=== PATIENT | male | born 1935 | race Caucasian/White ===

== ENCOUNTER 2020-06-28 11:00 | Inpatient (IN) | payer MEDICARE, BC ==
[2020-06-28 11:32] LABS: #Basophils 0.1 10x3/uL (0.0-0.2); #Eosinphils 0.4 10x3/uL (0.0-0.5); #Neutrophils 5.7 10x3/uL (1.5-8.4); %Basophils 0.8 % (0.0-2.0); %Lymphocytes 4.1 % (18.0-47.0); %Monocytes 13.2 % (0.0-10.0); %Neutrophils 76.5 % (40.0-75.0); Hemoglobin 8.1 g/dL (13.5-17.5); Mean Corpuscular HGB CONC 27.7 g/dL (32.0-36.0); Mean Corpuscular Hemoglobin 25.2 pg (27.0-33.0); Mean Corpuscular Volume 90.7 fl (81.2-95.1); Mean Platelet Volume 9.3 fl (7.4-10.4); Platelet Count 254 10x3/uL (150-450); RBC Distribution Width 16.7 % (11.5-14.5); Red Blood Cell (RBC) Count 3.22 10x6/uL (4.32-5.72); White Blood Cell (WBC) Count 7.4 10x3/uL (3.5-10.5)
[2020-06-28 11:38] LABS: ALT (SGPT) 12 U/L (8-55); AST (SGOT) 8 U/L (5-34); Albumin 3.9 g/dL (3.4-4.8); Alkaline Phosphatase 134 U/L (40-110); Anion Gap 14 mmol/L (10-20); BUN (Urea Nitrogen) 16 mg/dL (8.4-25.7); Bilirubin, Total 0.8 mg/dL (0.2-1.2); Calc. Creatinine Clearance 0 mL/min (70-130); Calcium 8.6 mg/dL (7.8-10.44); Carbon Dioxide 28 mmol/L (23-31); Chloride 99 mmol/L (98-107); Globulin 2.6 g/dL (2.4-3.5); Glucose 97 mg/dL (83-110); Potassium 4.5 mmol/L (3.5-5.1); Protein, Total 6.5 g/dL (5.8-8.1); Sodium 136 mmol/L (136-145)
[2020-06-28 11:48] LABS: INR-International Normal Ratio 1.1; PTT 25.8 sec (22.0-33.0); Prothrombin Time 11.8 sec (9.5-12.1)
[2020-06-28 14:36] LABS: Lactic Acid 1.1 mmol/L (0.5-2.2)
[2020-06-28 14:40] VITALS: BMI 32.5
[2020-06-28] MEDS ORDERED: Ondansetron PF 4 MG/2 ML Vial IVP PRN (17:02)
[2020-06-28] MEDS ORDERED: Acetaminophen 325 MG TAB PO PRN (17:02)
[2020-06-28] MEDS ORDERED: Bisacodyl 5 MG TAB PO PRN (17:06)
[2020-06-28] MEDS ORDERED: Furosemide 40 MG/4 ML VIAL SLOW IVP SCH (17:45)
[2020-06-28] MEDS: Budesonide 0.5 MG/2 ML NEB NEB SCH (20:13)
[2020-06-28] MEDS: Arformoterol 15 MCG/2 ML NEB NEB SCH (20:13)
[2020-06-28] MEDS: Atorvastatin Calcium 40 MG TAB PO SCH (21:59)
[2020-06-28] MEDS: Potassium Chloride 20 MEQ TAB PO SCH (21:59)
[2020-06-28] MEDS: Gabapentin 300 MG CAP PO SCH (22:00)
[2020-06-28] MEDS: Pantoprazole 40 MG VIAL IVP SCH (22:01)
[2020-06-29 03:55] LABS: SARS-CoV-2 PCR by NAA Not Detected (NotDetected)
[2020-06-29 05:02] LABS: #Basophils 0.1 10x3/uL (0.0-0.2); #Eosinphils 0.4 10x3/uL (0.0-0.5); #Monocytes 0.8 10x3/uL (0.0-1.1); #Neutrophils 4.2 10x3/uL (1.5-8.4); %Eosinophils 7.5 % (0.0-6.0); %Lymphocytes 5.5 % (18.0-47.0); %Monocytes 13.6 % (0.0-10.0); %Neutrophils 72.1 % (40.0-75.0); Hemoglobin 7.6 g/dL (13.5-17.5); Mean Corpuscular HGB CONC 27.8 g/dL (32.0-36.0); Mean Corpuscular Volume 89.8 fl (81.2-95.1); Mean Platelet Volume 9.4 fl (7.4-10.4); Platelet Count 235 10x3/uL (150-450); RBC Distribution Width 16.6 % (11.5-14.5); Red Blood Cell (RBC) Count 3.04 10x6/uL (4.32-5.72); White Blood Cell (WBC) Count 5.8 10x3/uL (3.5-10.5)
[2020-06-29 05:19] LABS: Anion Gap 13 mmol/L (10-20); BUN (Urea Nitrogen) 14 mg/dL (8.4-25.7); Calc. Creatinine Clearance 90 mL/min (70-130); Calcium 8.6 mg/dL (7.8-10.44); Carbon Dioxide 30 mmol/L (23-31); Chloride 99 mmol/L (98-107); Glucose 97 mg/dL (83-110); Potassium 4.5 mmol/L (3.5-5.1); Sodium 137 mmol/L (136-145)
[2020-06-29] MEDS: Arformoterol 15 MCG/2 ML NEB NEB SCH ×2 (07:26→19:15)
[2020-06-29] MEDS: Budesonide 0.5 MG/2 ML NEB NEB SCH ×2 (07:26→19:15)
[2020-06-29] MEDS: Furosemide 40 MG/4 ML VIAL SLOW IVP SCH ×2 (09:37→17:52)
[2020-06-29] MEDS: FLUoxetine HCl 10 MG CAP PO SCH (09:43)
[2020-06-29] MEDS: Tamsulosin HCl 0.4 MG CAP PO SCH (09:43)
[2020-06-29] MEDS: Finasteride 5 MG TAB PO SCH (09:43)
[2020-06-29] MEDS: Gabapentin 300 MG CAP PO SCH ×2 (09:44→21:28)
[2020-06-29] MEDS: Spironolactone 25 MG TAB PO SCH (09:44)
[2020-06-29] MEDS: Potassium Chloride 20 MEQ TAB PO SCH ×2 (09:45→21:29)
[2020-06-29] MEDS: Ferrous Sulfate 325 MG TAB PO SCH ×2 (09:45→17:52)
[2020-06-29] MEDS: Pantoprazole 40 MG VIAL IVP SCH ×2 (09:46→22:25)
[2020-06-29] MEDS ORDERED: Pantoprazole 40 MG VIAL ONE (20:52)
[2020-06-29] MEDS: Atorvastatin Calcium 40 MG TAB PO SCH (21:29)
[2020-06-30 05:18] LABS: Hemoglobin 7.4 g/dL (13.5-17.5)
[2020-06-30 05:37] LABS: Anion Gap 13 mmol/L (10-20); BUN (Urea Nitrogen) 20 mg/dL (8.4-25.7); Calc. Creatinine Clearance 100 mL/min (70-130); Calcium 8.9 mg/dL (7.8-10.44); Carbon Dioxide 31 mmol/L (23-31); Chloride 95 mmol/L (98-107); Glucose 101 mg/dL (83-110); Potassium 4.5 mmol/L (3.5-5.1); Sodium 134 mmol/L (136-145)
[2020-06-30] MEDS: Budesonide 0.5 MG/2 ML NEB NEB SCH ×2 (07:28→19:12)
[2020-06-30] MEDS: Arformoterol 15 MCG/2 ML NEB NEB SCH ×2 (07:35→19:12)
[2020-06-30] MEDS: Spironolactone 25 MG TAB PO SCH (08:21)
[2020-06-30] MEDS: Ferrous Sulfate 325 MG TAB PO SCH (08:21)
[2020-06-30] MEDS: Potassium Chloride 20 MEQ TAB PO SCH ×2 (08:21→21:01)
[2020-06-30] MEDS: Tamsulosin HCl 0.4 MG CAP PO SCH (08:21)
[2020-06-30] MEDS: Finasteride 5 MG TAB PO SCH (08:22)
[2020-06-30] MEDS: Gabapentin 300 MG CAP PO SCH ×2 (08:22→21:01)
[2020-06-30] MEDS: FLUoxetine HCl 10 MG CAP PO SCH (08:23)
[2020-06-30] MEDS: Furosemide 40 MG/4 ML VIAL SLOW IVP SCH ×2 (08:23→17:15)
[2020-06-30] MEDS: Pantoprazole 40 MG VIAL IVP SCH ×2 (08:35→21:00)
[2020-06-30] MEDS: Guaifenesin DM 100-10/5 ML UDCUP PO PRN (13:52)
[2020-06-30] MEDS ORDERED: Furosemide 40 MG/4 ML VIAL SLOW IVP SCH (18:45)
[2020-06-30] MEDS: Atorvastatin Calcium 40 MG TAB PO SCH (21:01)
[2020-07-01] MEDS ORDERED: Oxymetazoline HCl 0.05% ( 15 ML ) NASAL PRN (04:58)
[2020-07-01 06:30] LABS: #Basophils 0.1 10x3/uL (0.0-0.2); #Eosinphils 0.3 10x3/uL (0.0-0.5); #Monocytes 0.7 10x3/uL (0.0-1.1); #Neutrophils 4.7 10x3/uL (1.5-8.4); %Basophils 0.8 % (0.0-2.0); %Lymphocytes 4.3 % (18.0-47.0); %Monocytes 11.7 % (0.0-10.0); %Neutrophils 77.7 % (40.0-75.0); Hemoglobin 7.5 g/dL (13.5-17.5); Mean Corpuscular HGB CONC 28.2 g/dL (32.0-36.0); Mean Corpuscular Hemoglobin 24.8 pg (27.0-33.0); Mean Corpuscular Volume 87.8 fl (81.2-95.1); Mean Platelet Volume 9.4 fl (7.4-10.4); Platelet Count 220 10x3/uL (150-450); RBC Distribution Width 16.9 % (11.5-14.5); Red Blood Cell (RBC) Count 3.03 10x6/uL (4.32-5.72)
[2020-07-01 06:34] LABS: Anion Gap 13 mmol/L (10-20); BUN (Urea Nitrogen) 18 mg/dL (8.4-25.7); Calc. Creatinine Clearance 97 mL/min (70-130); Calcium 8.7 mg/dL (7.8-10.44); Carbon Dioxide 32 mmol/L (23-31); Chloride 92 mmol/L (98-107); Glucose 99 mg/dL (83-110); Magnesium 2.1 mg/dL (1.6-2.6); Potassium 4.3 mmol/L (3.5-5.1); Sodium 133 mmol/L (136-145)
[2020-07-01] MEDS: Arformoterol 15 MCG/2 ML NEB NEB SCH ×2 (07:35→19:40)
[2020-07-01] MEDS: Budesonide 0.5 MG/2 ML NEB NEB SCH (07:40)
[2020-07-01] MEDS: Potassium Chloride 20 MEQ TAB PO SCH ×2 (10:03→20:12)
[2020-07-01] MEDS: Spironolactone 25 MG TAB PO SCH (10:04)
[2020-07-01] MEDS: Furosemide 40 MG/4 ML VIAL SLOW IVP SCH ×2 (10:04→15:57)
[2020-07-01] MEDS: Gabapentin 300 MG CAP PO SCH ×2 (10:04→20:11)
[2020-07-01] MEDS: Finasteride 5 MG TAB PO SCH (10:04)
[2020-07-01] MEDS: Tamsulosin HCl 0.4 MG CAP PO SCH (10:04)
[2020-07-01] MEDS: FLUoxetine HCl 10 MG CAP PO SCH (10:04)
[2020-07-01] MEDS: Pantoprazole 40 MG VIAL IVP SCH ×2 (10:05→20:12)
[2020-07-01] MEDS ORDERED: methylPREDNISolone Sod Succ/PF 125 MG/2 ML VIAL IVP SCH (15:30)
[2020-07-01] MEDS: methylPREDNISolone Sod Succ/PF 125 MG/2 ML VIAL IVP SCH (20:11)
[2020-07-01] MEDS: Atorvastatin Calcium 40 MG TAB PO SCH (20:14)
[2020-07-02] MEDS: methylPREDNISolone Sod Succ/PF 125 MG/2 ML VIAL IVP SCH ×4 (02:32→21:14)
[2020-07-02] MEDS: Arformoterol 15 MCG/2 ML NEB NEB SCH ×2 (07:32→19:55)
[2020-07-02] MEDS: Furosemide 40 MG/4 ML VIAL SLOW IVP SCH (09:18)
[2020-07-02] MEDS: Gabapentin 300 MG CAP PO SCH ×2 (09:18→21:14)
[2020-07-02] MEDS: FLUoxetine HCl 10 MG CAP PO SCH (09:18)
[2020-07-02] MEDS: Spironolactone 25 MG TAB PO SCH (09:19)
[2020-07-02] MEDS: Tamsulosin HCl 0.4 MG CAP PO SCH (09:19)
[2020-07-02] MEDS: Potassium Chloride 20 MEQ TAB PO SCH ×2 (09:19→21:14)
[2020-07-02] MEDS: Finasteride 5 MG TAB PO SCH (09:19)
[2020-07-02] MEDS: Furosemide 100 MG/10 ML VIAL SLOW IVP SCH (15:04)
[2020-07-02] MEDS: Atorvastatin Calcium 40 MG TAB PO SCH (21:14)
[2020-07-03] MEDS: methylPREDNISolone Sod Succ/PF 125 MG/2 ML VIAL IVP SCH ×4 (02:49→20:40)
[2020-07-03] MEDS: Guaifenesin DM 100-10/5 ML UDCUP PO PRN (05:20)
[2020-07-03 05:59] LABS: Anion Gap 13 mmol/L (10-20); BUN (Urea Nitrogen) 26 mg/dL (8.4-25.7); Calc. Creatinine Clearance 88 mL/min (70-130); Carbon Dioxide 33 mmol/L (23-31); Chloride 92 mmol/L (98-107); Glucose 152 mg/dL (83-110); Potassium 5.1 mmol/L (3.5-5.1); Sodium 133 mmol/L (136-145)
[2020-07-03] MEDS: Arformoterol 15 MCG/2 ML NEB NEB SCH ×2 (07:32→19:04)
[2020-07-03] MEDS: Tamsulosin HCl 0.4 MG CAP PO SCH (09:45)
[2020-07-03] MEDS: Furosemide 100 MG/10 ML VIAL SLOW IVP SCH ×2 (09:45→18:36)
[2020-07-03] MEDS: Finasteride 5 MG TAB PO SCH (09:45)
[2020-07-03] MEDS: FLUoxetine HCl 10 MG CAP PO SCH (09:45)
[2020-07-03] MEDS: Gabapentin 300 MG CAP PO SCH ×2 (09:45→20:40)
[2020-07-03] MEDS: Potassium Chloride 20 MEQ TAB PO SCH (09:45)
[2020-07-03] MEDS: Atorvastatin Calcium 40 MG TAB PO SCH (20:41)
[2020-07-04] MEDS: methylPREDNISolone Sod Succ/PF 125 MG/2 ML VIAL IVP SCH ×4 (03:33→23:27)
[2020-07-04 06:28] LABS: Anion Gap 13 mmol/L (10-20); BUN (Urea Nitrogen) 31 mg/dL (8.4-25.7); Calc. Creatinine Clearance 88 mL/min (70-130); Carbon Dioxide 35 mmol/L (23-31); Chloride 91 mmol/L (98-107); Glucose 172 mg/dL (83-110); Potassium 4.6 mmol/L (3.5-5.1); Sodium 134 mmol/L (136-145)
[2020-07-04 07:19] LABS: #Monocytes 0.1 10x3/uL (0.0-1.1); #Neutrophils 4.6 10x3/uL (1.5-8.4); %Lymphocytes 1.9 % (18.0-47.0); %Monocytes 1.5 % (0.0-10.0); %Neutrophils 95.6 % (40.0-75.0); Hemoglobin 7.7 g/dL (13.5-17.5); Mean Corpuscular HGB CONC 27.8 g/dL (32.0-36.0); Mean Corpuscular Hemoglobin 24.4 pg (27.0-33.0); Mean Corpuscular Volume 87.7 fl (81.2-95.1); Platelet Count 250 10x3/uL (150-450); RBC Distribution Width 16.4 % (11.5-14.5); Red Blood Cell (RBC) Count 3.16 10x6/uL (4.32-5.72); White Blood Cell (WBC) Count 4.8 10x3/uL (3.5-10.5)
[2020-07-04 07:20] LABS: Anisocytosis SLIGHT = 6-15 cells (100X) (0-5/hpf); Hypochromia MARKED = >30 cells (100X) (0-5/hpf); Microcytosis SLIGHT = 6-15 cells (100X) (0-5/hpf); Ovalocytes SLIGHT = 2-5 cells (100X) (0-1/hpf); Poikilocytosis SLIGHT = 6-15 cells (100X) (0-5/hpf)
[2020-07-04 07:21] LABS: Macrocytosis SLIGHT = 6-15 cells (100X) (0-5/hpf)
[2020-07-04 07:22] LABS: Platelet Morphology Comment Appears Adequate; Polychromasia SLIGHT = 2-3 cells (100X) (0-2/hpf)
[2020-07-04] MEDS: Arformoterol 15 MCG/2 ML NEB NEB SCH ×2 (07:41→18:59)
[2020-07-04] MEDS: Gabapentin 300 MG CAP PO SCH ×2 (09:40→21:33)
[2020-07-04] MEDS: Finasteride 5 MG TAB PO SCH (09:40)
[2020-07-04] MEDS: Tamsulosin HCl 0.4 MG CAP PO SCH (09:41)
[2020-07-04] MEDS: FLUoxetine HCl 10 MG CAP PO SCH (09:41)
[2020-07-04] MEDS: Potassium Chloride 20 MEQ TAB PO SCH (09:41)
[2020-07-04] MEDS: Furosemide 100 MG/10 ML VIAL SLOW IVP SCH ×2 (09:42→16:35)
[2020-07-04] MEDS: Atorvastatin Calcium 40 MG TAB PO SCH (21:34)
[2020-07-05] MEDS: methylPREDNISolone Sod Succ/PF 125 MG/2 ML VIAL IVP SCH ×3 (03:13→21:20)
[2020-07-05] MEDS: Guaifenesin DM 100-10/5 ML UDCUP PO PRN (06:18)
[2020-07-05 06:38] LABS: Anion Gap 12 mmol/L (10-20); BUN (Urea Nitrogen) 31 mg/dL (8.4-25.7); Calc. Creatinine Clearance 88 mL/min (70-130); Calcium 8.8 mg/dL (7.8-10.44); Carbon Dioxide 35 mmol/L (23-31); Chloride 92 mmol/L (98-107); Glucose 160 mg/dL (83-110); Potassium 4.4 mmol/L (3.5-5.1); Sodium 135 mmol/L (136-145)
[2020-07-05] MEDS: Arformoterol 15 MCG/2 ML NEB NEB SCH (07:19)
[2020-07-05] MEDS: Gabapentin 300 MG CAP PO SCH (11:50)
[2020-07-05] MEDS: FLUoxetine HCl 10 MG CAP PO SCH (11:50)
[2020-07-05] MEDS: Finasteride 5 MG TAB PO SCH (11:50)
[2020-07-05] MEDS: Furosemide 100 MG/10 ML VIAL SLOW IVP SCH (11:50)
[2020-07-05] MEDS: Potassium Chloride 20 MEQ TAB PO SCH (11:50)
[2020-07-05] MEDS: Tamsulosin HCl 0.4 MG CAP PO SCH (11:50)
[2020-07-05 21:37] VITALS: BP 128/68; TEMP 98.3
== END 2020-07-05 15:30 | DRG 377 ==
LOC: CSHERS 11:00 → INTOOBSV 13:27 → CSHTELE 13:27 → OBSVTOIN 17:02
PROVIDERS: ADMIT Hospitalist; ATTEND Hospitalist
DX: K92.1 Melena (principal); I50.33 Acute on chronic diastolic (congestive) heart failure; J96.21 Acute and chronic respiratory failure with hypoxia; J44.1 Chronic obstructive pulmonary disease with (acute) exacerbation; D50.9 Iron deficiency anemia, unspecified; I48.0 Paroxysmal atrial fibrillation; I35.0 Nonrheumatic aortic (valve) stenosis; I11.0 Hypertensive heart disease with heart failure; Z20.822 Contact with and (suspected) exposure to COVID-19; H91.90 Unspecified hearing loss, unspecified ear; Z95.0 Presence of cardiac pacemaker; Z88.7 Allergy status to serum and vaccine; Z79.82 Long term (current) use of aspirin; Z79.899 Other long term (current) drug therapy; Z87.891 Personal history of nicotine dependence; L89.322 Pressure ulcer of left buttock, stage 2
CPT/HCPCS: 36415; 36416; 71045; 80048; 80053; 82274; 83605; 83735; 83880; 85014; 85018; 85025; 85610; 85730; 86850; 86900; 86901; 87040; 87635; 94640; 94760; 99285; C9113; G0378; J1940; J2930; J7620; J7626; U0003; U0005

== ENCOUNTER 2020-07-23 16:37 | Inpatient (IN) | payer MEDICARE, BC ==
[2020-07-23 17:45] LABS: #Monocytes 0.3 10x3/uL (0.0-1.1); #Neutrophils 6.1 10x3/uL (1.5-8.4); %Basophils 0.3 % (0.0-2.0); %Eosinophils 0.3 % (0.0-6.0); %Lymphocytes 3.9 % (18.0-47.0); %Monocytes 4.3 % (0.0-10.0); %Neutrophils 90.8 % (40.0-75.0); Hemoglobin 7.4 g/dL (13.5-17.5); Mean Corpuscular HGB CONC 28.1 g/dL (32.0-36.0); Mean Corpuscular Hemoglobin 24.3 pg (27.0-33.0); Mean Corpuscular Volume 86.2 fl (81.2-95.1); Mean Platelet Volume 9.8 fl (7.4-10.4); Platelet Count 179 10x3/uL (150-450); RBC Distribution Width 19.5 % (11.5-14.5); Red Blood Cell (RBC) Count 3.05 10x6/uL (4.32-5.72); White Blood Cell (WBC) Count 6.7 10x3/uL (3.5-10.5)
[2020-07-23 17:50] LABS: ALT (SGPT) 18 U/L (8-55); AST (SGOT) 7 U/L (5-34); Albumin 3.7 g/dL (3.4-4.8); Alkaline Phosphatase 110 U/L (40-110); Anion Gap 18 mmol/L (10-20); BUN (Urea Nitrogen) 16 mg/dL (8.4-25.7); Bilirubin, Total 0.6 mg/dL (0.2-1.2); Calc. Creatinine Clearance 0 mL/min (70-130); Calcium 8.5 mg/dL (7.8-10.44); Carbon Dioxide 23 mmol/L (23-31); Chloride 99 mmol/L (98-107); Globulin 2.1 g/dL (2.4-3.5); Glucose 91 mg/dL (83-110); Potassium 4.5 mmol/L (3.5-5.1); Protein, Total 5.8 g/dL (5.8-8.1); Sodium 135 mmol/L (136-145)
[2020-07-23 18:17] LABS: Anisocytosis SLIGHT = 6-15 cells (100X) (0-5/hpf)
[2020-07-23 18:19] LABS: Hypochromia SLIGHT = 6-15 cells (100X) (0-5/hpf); Polychromasia SLIGHT = 2-3 cells (100X) (0-2/hpf)
[2020-07-23 18:20] LABS: Microcytosis SLIGHT = 6-15 cells (100X) (0-5/hpf)
[2020-07-23 18:22] LABS: Large Platelets SLIGHT; Target Cells SLIGHT = 2-5 cells (100X) (0-1/hpf)
[2020-07-23 18:23] LABS: Platelet Morphology Comment Appears Adequate
[2020-07-23] MEDS ORDERED: Ondansetron PF 4 MG/2 ML Vial IVP PRN (18:43)
[2020-07-23] MEDS ORDERED: Senokot S 8.6-50 MG TAB PO PRN (18:43)
[2020-07-23] MEDS ORDERED: Acetaminophen 325 MG TAB PO PRN (18:43)
[2020-07-23] MEDS ORDERED: Furosemide 40 MG/4 ML VIAL ONE (18:46)
[2020-07-23 19:06] LABS: Bilirubin Neg (Negative); Blood, Urine Negative (Negative); Clarity Clear (Clear); Glucose, Urine (Dipstick) Normal (Negative); Ketone, Urine Negative (Negative); Leukocyte Negative (Negative); Nitrite Negative (Negative); Protein, Urine (Dipstick) 15 mg/dl (Neg-Trace); Specific Gravity, Urine 1.015 (1.002-1.036); Urobilinogen Normal mg/dL (Less than 2)
[2020-07-23 22:28] LABS: Troponin I 0.034 ng/mL (< 0.028)
[2020-07-23 22:55] VITALS: BMI 33.0
[2020-07-23 23:23] LABS: Troponin I 0.035 ng/mL (< 0.028)
[2020-07-23] MEDS: Atorvastatin Calcium 40 MG TAB PO SCH (23:35)
[2020-07-23] MEDS: Benzonatate 100 MG CAP PO SCH (23:36)
[2020-07-23] MEDS: Gabapentin 300 MG CAP PO SCH (23:36)
[2020-07-24 05:31] LABS: #Eosinphils 0.1 10x3/uL (0.0-0.5); #Monocytes 0.4 10x3/uL (0.0-1.1); #Neutrophils 4.1 10x3/uL (1.5-8.4); %Basophils 0.6 % (0.0-2.0); %Eosinophils 2.6 % (0.0-6.0); %Lymphocytes 6.4 % (18.0-47.0); %Monocytes 8.4 % (0.0-10.0); %Neutrophils 81.8 % (40.0-75.0); Hemoglobin 7.4 g/dL (13.5-17.5); Mean Corpuscular HGB CONC 27.9 g/dL (32.0-36.0); Mean Platelet Volume 10.1 fl (7.4-10.4); Platelet Count 192 10x3/uL (150-450); RBC Distribution Width 19.7 % (11.5-14.5); Red Blood Cell (RBC) Count 3.08 10x6/uL (4.32-5.72)
[2020-07-24 05:45] LABS: ALT (SGPT) 13 U/L (8-55); AST (SGOT) 7 U/L (5-34); Albumin 3.6 g/dL (3.4-4.8); Alkaline Phosphatase 106 U/L (40-110); Anion Gap 13 mmol/L (10-20); BUN (Urea Nitrogen) 14 mg/dL (8.4-25.7); Bilirubin, Total 0.6 mg/dL (0.2-1.2); Calc. Creatinine Clearance 99 mL/min (70-130); Calcium 8.5 mg/dL (7.8-10.44); Carbon Dioxide 28 mmol/L (23-31); Chloride 99 mmol/L (98-107); Globulin 2.4 g/dL (2.4-3.5); Glucose 112 mg/dL (83-110); Potassium 3.8 mmol/L (3.5-5.1); Sodium 136 mmol/L (136-145)
[2020-07-24] MEDS: Furosemide 40 MG/4 ML VIAL SLOW IVP SCH ×2 (06:37→14:40)
[2020-07-24] MEDS: Budesonide 0.5 MG/2 ML NEB NEB SCH ×2 (07:45→18:45)
[2020-07-24] MEDS ORDERED: Enoxaparin Sodium 40 MG/0.4 ML SYRINGE SC SCH (09:00)
[2020-07-24] MEDS: Gabapentin 300 MG CAP PO SCH ×2 (09:10→21:35)
[2020-07-24] MEDS: predniSONE 10 MG TAB PO SCH (09:11)
[2020-07-24] MEDS: Benzonatate 100 MG CAP PO SCH ×3 (09:11→21:35)
[2020-07-24] MEDS: Cyanocobalamin (Vitamin B-12) 1,000 MCG TAB PO SCH (09:11)
[2020-07-24] MEDS: Aspirin 325 mg Enteric Coated Tablet PO SCH (09:11)
[2020-07-24] MEDS: Ferrous Sulfate 325 MG TAB PO SCH ×2 (09:11→17:05)
[2020-07-24] MEDS: Finasteride 5 MG TAB PO SCH (09:11)
[2020-07-24] MEDS: FLUoxetine HCl 10 MG CAP PO SCH (09:12)
[2020-07-24] MEDS: Folic Acid 1 MG TAB PO SCH (09:12)
[2020-07-24] MEDS: Tamsulosin HCl 0.4 MG CAP PO SCH (09:13)
[2020-07-24] MEDS: Thiamine 100 MG TAB PO SCH (09:13)
[2020-07-24 13:31] LABS: SARS-CoV-2 PCR by NAA Not Detected (NotDetected)
[2020-07-24] MEDS: Atorvastatin Calcium 40 MG TAB PO SCH (21:35)
[2020-07-25] MEDS: Furosemide 40 MG/4 ML VIAL SLOW IVP SCH ×2 (05:03→14:10)
[2020-07-25] MEDS: Budesonide 0.5 MG/2 ML NEB NEB SCH ×2 (06:56→18:51)
[2020-07-25] MEDS: Tamsulosin HCl 0.4 MG CAP PO SCH (08:29)
[2020-07-25] MEDS: Benzonatate 100 MG CAP PO SCH ×3 (08:29→20:57)
[2020-07-25] MEDS: Finasteride 5 MG TAB PO SCH (08:29)
[2020-07-25] MEDS: Cyanocobalamin (Vitamin B-12) 1,000 MCG TAB PO SCH (08:29)
[2020-07-25] MEDS: Folic Acid 1 MG TAB PO SCH (08:29)
[2020-07-25] MEDS: predniSONE 10 MG TAB PO SCH (08:29)
[2020-07-25] MEDS: Gabapentin 300 MG CAP PO SCH ×2 (08:29→20:57)
[2020-07-25] MEDS: Aspirin 325 mg Enteric Coated Tablet PO SCH (08:29)
[2020-07-25] MEDS: FLUoxetine HCl 10 MG CAP PO SCH (08:30)
[2020-07-25] MEDS: Ferrous Sulfate 325 MG TAB PO SCH ×2 (08:30→17:15)
[2020-07-25] MEDS: Thiamine 100 MG TAB PO SCH (08:30)
[2020-07-25] MEDS: Furosemide 40 MG TAB PO SCH (20:58)
[2020-07-25] MEDS: Atorvastatin Calcium 40 MG TAB PO SCH (20:59)
[2020-07-26 08:00] VITALS: BP 142/71; TEMP 97
[2020-07-26] MEDS: Budesonide 0.5 MG/2 ML NEB NEB SCH (08:21)
[2020-07-26] MEDS: Furosemide 40 MG TAB PO SCH (09:39)
[2020-07-26] MEDS: predniSONE 10 MG TAB PO SCH (09:39)
[2020-07-26] MEDS: Thiamine 100 MG TAB PO SCH (09:39)
[2020-07-26] MEDS: Tamsulosin HCl 0.4 MG CAP PO SCH (09:39)
[2020-07-26] MEDS: Benzonatate 100 MG CAP PO SCH (09:39)
[2020-07-26] MEDS: Finasteride 5 MG TAB PO SCH (09:39)
[2020-07-26] MEDS: Aspirin 325 mg Enteric Coated Tablet PO SCH (09:40)
[2020-07-26] MEDS: Folic Acid 1 MG TAB PO SCH (09:40)
[2020-07-26] MEDS: Cyanocobalamin (Vitamin B-12) 1,000 MCG TAB PO SCH (09:40)
[2020-07-26] MEDS: Gabapentin 300 MG CAP PO SCH (09:40)
[2020-07-26] MEDS: Ferrous Sulfate 325 MG TAB PO SCH (09:40)
[2020-07-26] MEDS: FLUoxetine HCl 10 MG CAP PO SCH (09:40)
== END 2020-07-26 16:15 | disposition home or self-care (01) | DRG 312 ==
LOC: CSHERS 16:37 → CSHTELE 18:43 → UNDOADMOB 22:44 → OBSVTOIN 07-25 13:47
PROVIDERS: ADMIT Family Medicine; ATTEND Family Medicine
DX: R55 Syncope and collapse (principal); I50.33 Acute on chronic diastolic (congestive) heart failure; I13.0 Hypertensive heart and chronic kidney disease with heart failure and stage 1 through stage 4 chronic kidney disease, or unspecified chronic kidney disease; I48.19 Other persistent atrial fibrillation; J96.11 Chronic respiratory failure with hypoxia; Z20.822 Contact with and (suspected) exposure to COVID-19; Z66 Do not resuscitate; I65.23 Occlusion and stenosis of bilateral carotid arteries; N40.0 Benign prostatic hyperplasia without lower urinary tract symptoms; I25.10 Atherosclerotic heart disease of native coronary artery without angina pectoris; N18.2 Chronic kidney disease, stage 2 (mild); E78.5 Hyperlipidemia, unspecified; R77.8 Other specified abnormalities of plasma proteins; Z95.5 Presence of coronary angioplasty implant and graft; Z95.0 Presence of cardiac pacemaker; Z87.891 Personal history of nicotine dependence; Z82.3 Family history of stroke; Z82.49 Family history of ischemic heart disease and other diseases of the circulatory system; I73.9 Peripheral vascular disease, unspecified; I35.0 Nonrheumatic aortic (valve) stenosis; D63.1 Anemia in chronic kidney disease; D63.8 Anemia in other chronic diseases classified elsewhere
CPT/HCPCS: 36415; 51702; 71045; 80053; 81003; 82553; 83880; 84484; 85025; 87635; 93005; 93880; 94760; 96374; 96376; G0378; J1940; J7512; J7620; J7626; U0003; U0005